=== PATIENT | male | born 1970 | race Caucasian/White ===

== ENCOUNTER 2022-07-25 02:51 | Outpatient (CLI) | payer BC, SELFPAY ==
[2022-07-25 08:21] LABS: ALT 32 U/L (16-63); AST 21 U/L (15-37); Alkaline Phosphatase 74 U/L (46-116); Anion Gap 7.2 mmol/L (3-11); BUN 13 mg/dL (7-18); Bilirubin, Total 1.2 mg/dL (0.2-1.0); CO2 30.8 mmol/L (21.0-32.0); CREATININE 0.8 mg/dL (0.70-1.30); Calcium 8.9 mg/dL (8.5-10.1); Calculated LDL 152 mg/dL (<100); Chloride 103 mmol/L (98-107); Cholesterol 227 mg/dL (<200); Estimated GFR 105.82 (mL/min/1.73m2); Glucose 93 mg/dL (74-106); HDL Cholesterol 57 mg/dL (40-60); Potassium 3.5 mmol/L (3.5-5.1); Sodium 141 mmol/L (136-145); Total Protein 7.7 g/dL (6.4-8.2); Triglyceride 91 mg/dL (<150)
[2022-07-25 13:27] LABS: Lab Add On Test DONE
[2022-07-25 13:40] LABS: Bilirubin, Direct 0.2 mg/dL (0.0-0.2)
[2022-07-25 19:36] LABS: PSA, Screening 0.9 ng/mL (<=3.5)
[2022-07-26 09:17] LABS: Hepatitis C Ab w Rflx HCV PCR Negative (Negative)
[2022-07-26 09:24] LABS: HIV-1/2 Ag & Ab Screen Negative (Negative)
== END 2022-07-25 02:52 | disposition home or self-care (01) ==
LOC: LBO 02:51
PROVIDERS: PCP Nurse Practitioner Family; Visit Provider Nurse Practitioner Family
DX: E78.5 Hyperlipidemia, unspecified (principal); E80.6 Other disorders of bilirubin metabolism; Z13.1 Encounter for screening for diabetes mellitus; Z11.4 Encounter for screening for human immunodeficiency virus [HIV]; Z11.59 Encounter for screening for other viral diseases; Z12.5 Encounter for screening for malignant neoplasm of prostate
CPT/HCPCS: 36415; 80053; 80061; 84153; 86803; 87389; 82248

== ENCOUNTER 2022-08-02 03:07 | Outpatient (CLI) | payer BC, SELFPAY ==
[2022-08-02 16:23] LABS: Abs Immature Grans 0.02 10^3/uL (0.0-0.06); Absolute Basophil Count 0.11 10^3/uL (0.0-0.2); Absolute Eosinophil Count 0.64 10^3/uL (0.0-0.7); Absolute Lymphocyte Count 2.19 10^3/uL (1.2-3.4); Absolute Monocyte Count 0.79 10^3/uL (0.1-0.8); Absolute Neutrophil Count 4.98 10^3/uL (1.2-6.7); Basophils % 1.3; Eosinophils % 7.3; HCT 42.2 % (40.0-50.0); HGB 14.4 g/dL (13.5-17.5); Immature Grans % 0.2; Lymphocytes % 25.1; MCH 30.6 pg (27.0-33.0); MCHC 34.1 % (32.0-36.0); MCV 90 fL (80-95); MPV 10.3 fL (8.0-11.0); Neutrophils % 57.1; Platelet Count 201 10^3/uL (130-400); RDW 11.9 % (11.8-14.1); RDW-SD 38.7 fL; WBC 8.73 10^3/uL (4.4-10.8)
[2022-08-02 17:23] LABS: LDH 158 U/L (85-227)
== END 2022-08-02 03:08 | disposition home or self-care (01) ==
LOC: LBO 03:08
PROVIDERS: PCP Nurse Practitioner Family; Visit Provider Nurse Practitioner Family
DX: E80.6 Other disorders of bilirubin metabolism (principal); E78.5 Hyperlipidemia, unspecified
CPT/HCPCS: 36415; 83615; 85025

== ENCOUNTER 2023-10-08 01:24 | Outpatient (CLI) | payer BC, SELFPAY ==
[2023-10-08 09:10] LABS: Hemoglobin A1C 5.3 % (<5.7)
[2023-10-08 10:06] LABS: ALT 32 U/L (16-63); AST 20 U/L (15-37); Albumin 4.1 g/dL (3.4-5.0); Alkaline Phosphatase 69 U/L (46-116); Bilirubin, Total 1.43 mg/dL (0.2-1.0); Calculated LDL 142 mg/dL (<100); Cholesterol 220 mg/dL (<200); HDL Cholesterol 58 mg/dL (40-60); Total Protein 7.7 g/dL (6.4-8.2); Triglyceride 103 mg/dL (<150)
[2023-10-08 10:18] LABS: Bilirubin, Direct 0.2 mg/dL (0.0-0.2)
[2023-10-08 19:13] LABS: PSA, Screening 1.3 ng/mL (<=3.5)
== END 2023-10-08 01:25 | disposition home or self-care (01) ==
LOC: LBO 01:24
PROVIDERS: PCP Nurse Practitioner Family; Referring Provider Nurse Practitioner Family; Visit Provider Nurse Practitioner Family
DX: Z00.00 Encounter for general adult medical examination without abnormal findings (principal); Z80.42 Family history of malignant neoplasm of prostate; E80.6 Other disorders of bilirubin metabolism
CPT/HCPCS: 36415; 80061; 80076; 84153; 83036

== ENCOUNTER 2023-10-22 03:40 | Outpatient (CLI) | payer BC, SELFPAY ==
[2023-10-22 14:25] LABS: HCT 45.2 % (40.0-50.0); HGB 15.6 g/dL (13.5-17.5); MCH 30.5 pg (27.0-33.0); MCHC 34.5 % (32.0-36.0); MCV 88 fL (80-95); MPV 10.2 fL (8.0-11.0); Platelet Count 219 10^3/uL (130-400); RBC 5.12 10^6/uL (4.36-5.78); RDW-SD 38.7 fL; WBC 6.49 10^3/uL (4.4-10.8)
[2023-10-22 14:50] LABS: LDH 152 U/L (85-227)
== END 2023-10-22 03:41 | disposition home or self-care (01) ==
LOC: LBO 03:41
PROVIDERS: PCP Nurse Practitioner Family; Visit Provider Nurse Practitioner Family
DX: E80.6 Other disorders of bilirubin metabolism (principal)
CPT/HCPCS: 36415; 85027; 83615

== ENCOUNTER 2024-10-15 02:19 | Outpatient (CLI) | payer BC, SELFPAY ==
[2024-10-15 08:04] LABS: ALT 34 U/L (16-63); AST 21 U/L (15-37); Albumin 4.0 g/dL (3.4-5.0); Alkaline Phosphatase 76 U/L (46-116); Anion Gap 7.2 mmol/L (3-11); BUN 18 mg/dL (7-18); Bilirubin, Total 1.1 mg/dL (0.2-1.0); CO2 31.8 mmol/L (21.0-32.0); Calcium 9.1 mg/dL (8.5-10.1); Calculated LDL 164 mg/dL (<100); Chloride 102 mmol/L (98-107); Cholesterol 244 mg/dL (<200); Estimated GFR 104.51 (mL/min/1.73m2); Glucose 96 mg/dL (74-106); HDL Cholesterol 57 mg/dL (>or=40); Potassium 3.8 mmol/L (3.5-5.1); Sodium 141 mmol/L (136-145); Total Protein 7.7 g/dL (6.4-8.2); Triglyceride 117 mg/dL (<150)
[2024-10-15 18:21] LABS: PSA, Screening 1.7 ng/mL (<=3.5)
== END 2024-10-15 02:20 | disposition home or self-care (01) ==
LOC: LBO 02:19
PROVIDERS: PCP Nurse Practitioner Family; Referring Provider Nurse Practitioner Family; Visit Provider Nurse Practitioner Family
DX: E80.6 Other disorders of bilirubin metabolism (principal); Z00.00 Encounter for general adult medical examination without abnormal findings; Z80.42 Family history of malignant neoplasm of prostate
CPT/HCPCS: 36415; 80053; 80061; 82947; 84153